=== PATIENT | female | born 1985 | race Caucasian/White ===

== ENCOUNTER 2018-06-01 01:22 | Emergency (ER) | payer MEDICAID ==
[~2018-06-01] VITALS: Ht 162.6 cm; Wt 78.9 kg
[2018-06-01 01:33] VITALS: Ht 162.6 cm; Wt 78.9 kg
[2018-06-01 02:45] LABS: BASOPHIL % 0.4 % (0-2); RED CELL DISTRIBUTION WIDTH 12.9 % (11.5-14.5)
[2018-06-01 02:51] LABS: CALCIUM 7.6 mg/dL (8.5-10.1); CARBON DIOXIDE 26.7 mmol/L (21-32); CHLORIDE SERUM 106 mmol/L (98-107); CREATININE SERUM 0.4 mg/dL (0.6-1.0); GFR1 > 60 mL/min; GLUCOSE SERUM 82 mg/dL (74-106); PLATELET COUNT 347 x10^3mcL (130-400); POTASSIUM SERUM 3.3 mmol/L (3.5-5.1); SODIUM SERUM 138 mmol/L (136-145)
[2018-06-01 02:56] LABS: ALKALINE PHOSPHATASE 89 U/L (46-116); ALT/SGPT 19 U/L (14-59); AST/SGOT 14 U/L (15-37); BILIRUBIN TOTAL 0.32 mg/dL (0.20-1.00); TOTAL PROTEIN, SERUM 5.8 g/dL (6.4-8.2)
[2018-06-01 04:02] LABS: UA SPECIFIC GRAVITY 1.025 (1.005-1.035); microscopic required? YES; urine erythrocyte 3+ (NEGATIVE)
[2018-06-01 06:51] VITALS: BP 120/71
== END 2018-06-01 06:51 | disposition home or self-care (01) ==
LOC: ED 01:22
PROVIDERS: Emergency Medicine
DX: O46.92 Antepartum hemorrhage, unspecified, second trimester (principal); Z3A.25 25 weeks gestation of pregnancy
CPT/HCPCS: 36415; Q0092